=== PATIENT | male | born 1990 | race Caucasian/White ===

== ENCOUNTER 2020-03-01 17:50 | Emergency (ER) | payer OTHER, SELFPAY ==
[2020-03-01 17:51] VITALS: BP 122/65; PULSE 108; RESP 16; TEMP 36.3; O2SAT 94; BMI 27.2
--- NOTE | 2020-03-01 18:54 | ED.VISSUMM ---
- ER Visit Summary Date of Service: 03/01/20 Chief Complaint: Fever History of Present Illness: The patient is a 29 M past medical or surgical history. Currently on no medications. Patient states last night just before midnight he started having a fever. He has had diarrhea. With nausea. No vomiting. No cough no shortness of breath only some mild crampy abdominal pain with diarrhea. No dysuria. Does not know anyone recently has been exposed to its been ill. He denies any severe headache or neck pain. Physical Examination: Male no acute distress vital signs are stable. Currently is afebrile temperature is 97. Heart rate 108 pulse ox 94% on room air no signs hypoxia. H EENT exam unremarkable. Moist with membranes. TMs posterior pharynx are normal. No erythema or exudate. No trouble swallowing or breathing. No drooling. Neck nontender. No meningismus. Can easily flex his chin to his chest. No lymphadenopathy. Lungs clear to auscultation bilaterally. Heart regular rhythm no murmur. Abdomen soft nontender normal bowel sounds no peritoneal signs. Right upper and right lower quadrant unremarkable. Extremities moves all 4. Calves are nontender without edema. Skin no rashes. Back nontender. Neurologically is awake alert with no focal motor deficits. Test Results: Chest x-ray portable 1 view read myself shows no acute abnormality. Normal cardiac silhouette. Normal lung akins. No infiltrate. CBC normal. White count of 9. Hemoglobin 14. Chemistries normal normal gap normal creatinine. Liver enzymes normal. Covid test send out pending. Emergency Department Course and Treatment: Male with diarrhea, fever and viral-like syndrome. Treated with IV fluids. Screening labs chest x-ray and Covid to be obtained. He has had no travel and been on no antibiotics. I do not feel at this time since been less than 24 hours that he needs either stool culture or C. difficile. Treatment Plan: Repeat exam the patient is doing well at 8 PM. Abdomen is benign. He and I went over all the test results. Feels better after the IV fluids. Fluids and rest. Alternate Tylenol and Motrin for fever. Antidiarrhea medications [id number]. Outpatient Covid test pending. Disposition: dc Impression: Acute fever Acute diarrhea Acute viral syndrome rule out Covid. This note was generated with [employer] software. It may contain incorrect words, spelling, and punctuation that were not noted in review of the chart prior to signing ED Disposition - Plan for ED Patient: Referrals: True Hassan MD [Primary Care Provider] -
[2020-03-01] MEDS: 0.9% Normal Saline 1,000 ML 1000 ML IV (19:22)
--- NOTE | 2020-03-01 19:24 | RAD_ITS ---
STUDY: X-RAY CHEST REASON FOR EXAM: Male, 29 years old. WEAKNESS, 105 TEMP, HEADACHE, DECREASED SLEEP, STARTED LAST NIGHT. TECHNIQUE: Single AP portable view of the chest. COMPARISON: AUGUST 27, 2012 FINDINGS: The lungs are clear and expanded. There is no demonstrated pleural abnormality. Normal size heart. Normal mediastinum and anika. Normal visualized pulmonary arteries. Normal visualized aortic arch and descending thoracic aorta. Normal visualized thoracic spine. Normal visualized ribs, clavicles, and shoulders. There is no demonstrated abnormality of the visualized soft tissue structures of the upper abdomen. RAD/Chest 1 View (Portable) IMPRESSION: Normal x-ray examination of the chest. Electronically Signed: Mark Simmons MD at 20:03 EST , Service support ,
[2020-03-01 19:28] LABS: Absolute Lymphocyte Count 0.45 X10^3/uL (0.83-4.51); Absolute Neutrophil Count 8.8 X10^3/uL (2.0-7.7); Basophil# 0.02 X10^3/uL; Basophil% 0.2 % (0-1); Hematocrit 42.7 % (40-54); Hemoglobin 14.1 g/dL (13.0-16.5); Lymphocyte # 0.45 X10^3/ul (4.0); Lymphocyte % 4.6 % (19-41); Mean Corpuscular Hgb 29.4 pg (27.0-32.0); Mean Platelet Vol. 9.8 fl (6.2-12.0); Monocyte# 0.49 X10^3/uL; NRBC Flagged by Analyzer 0 % (0-5); Neutrophil # 8.83 X10^3/uL (2.7-7.7); Neutrophil % 89.8 % (47-70); POSITIVE DIFFERENTIAL YES; Platelet Count 197 K/mm3 (150-450); RBC Distribution Width CV 12.7 % (11.6-14.6); RBC Distribution Width SD 41.8 fl (35.1-43.9); White Blood Count 9.8 K/mm3 (4.4-11.0)
[2020-03-01 19:44] LABS: Differential Comment SCANNED; Differential Indicated SCAN CRITERIA MET
[2020-03-01 19:49] VITALS: BP 138/59; PULSE 86; RESP 18; TEMP 37.7; O2SAT 100
[2020-03-01 19:50] LABS: AST(SGOT) 17 U/L (15-37); Alanine Aminotransfer ALT/SGPT 31 U/L (16-61); Albumin, Serum 3.9 g/dL (3.2-5.0); Alkaline Phosphatase 66 U/L (45-117); Anion Gap 6 (5-15); BUN 11 mg/dL (7-18); BUN/Creat Ratio 9.9 RATIO (10-20); Bilirubin, Direct 0.12 mg/dL (0.00-0.30); Calcium,Total 9.1 mg/dL (8.5-10.1); Chloride 103 mmol/L (98-107); Creatinine, Serum 1.11 mg/dL (0.70-1.30); EST Glomerular Filtration Rate 84 mL/min (>60); Est Glom Filt Rate - Afr Amer 102 mL/min (>60); Estimated Creatinine Clearance 125.98 ml/min; Globulin 3.4 g/dL (2.2-4.2); Glucose 117 mg/dL (74-106); Potassium 3.9 mmol/L (3.5-5.1); Protein, Total 7.3 g/dL (6.4-8.2); Sodium Level 135 mmol/L (136-145)
--- NOTE | 2020-03-01 20:07 | DCINST.ED_ITS ---
ED Disposition - Plan for ED Patient: Disposition: Home or Assisted Living Instructions: ED Viral Syndrome Referrals: True Hassan MD [Primary Care Provider] - 1 Week if not improving Additional Instructions: Plenty of fluids and rest. Alternate Tylenol and Motrin for any fever. Your Covid test will be done in [place]. The state will notify you if the results are positive. Follow-up with your doctor if not improving. Return if feeling worse. Quarantine at home for the next several days.
[2020-03-01 20:22] VITALS: BP 139/61; PULSE 98; RESP 18; O2SAT 98
== END 2020-03-01 20:23 | disposition home or self-care (01) ==
PROVIDERS: Emergency Provider Emergency Medicine
DX: R50.9 Fever, unspecified (principal); R19.7 Diarrhea, unspecified; B34.9 Viral infection, unspecified
CPT/HCPCS: 71045; 80048; 80076; 85025; 87635; 99283; J7030; U0003

== ENCOUNTER 2021-10-31 17:20 | Emergency (ER) | payer OTHER, SELFPAY ==
[2021-10-31 17:22] VITALS: BP 133/87; PULSE 70; RESP 16; TEMP 36.9; O2SAT 96; BMI 28.4
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
[2021-10-31] MEDS: Acetaminophen 500 MG Tablet 1000 MG PO (18:11)
== END 2021-10-31 18:51 | disposition home or self-care (01) ==
PROVIDERS: Emergency Provider Emergency Medicine; PCP Nurse Practitioner Primary Care; Visit Provider Emergency Medicine
DX: S09.90XA Unspecified injury of head, initial encounter (principal); S00.91XA Abrasion of unspecified part of head, initial encounter; V19.3XXA Pedal cyclist (driver) (passenger) injured in unspecified nontraffic accident, initial encounter
CPT/HCPCS: 70450; 73130; 99283

== ENCOUNTER → 2022-02-17 | Outpatient (CLI) | payer OTHER, SELFPAY ==
--- NOTE | 2022-02-17 07:23 | MRI_ITS ---
STUDY: MRI RIGHT MIDFOOT REASON FOR EXAM: Male, 31 years old. RT HIND FOOT, PLANTAR FASCITITIS, FIBROMA,NERVE LESION,ENTRAPMENT TECHNIQUE: Standardized fat and water weighted pulse sequences were obtained in all 3 orthogonal planes. COMPARISON: None. FINDINGS: Normal talonavicular articulation. Normal calcaneocuboid articulation. Normal navicular-cuneiform articulations. Normal intercuneiform articulations. Normal first tarsometatarsal articulation. Normal Lisfranc ligament. Normal second and third tarsometatarsal articulations. Normal cuboid fourth and cuboid fifth tarsometatarsal articulation. Normal first through fifth metatarsi. Normal tibialis anterior tendon. Normal extensor hallucis longus tendon. Normal extensor digitorum longus tendons. Normal peroneus longus tendon and distal insertion. Normal peroneus brevis tendon and distal insertion. Normal intrinsic muscles of the mid and forefoot region. Normal extensor digitorum brevis muscle. Normal subcutis adipose space. MRI/Lower Ext/No Jt/w/o IMPRESSION: Normal MRI of the midfoot. Electronically Signed: Nguyễn Ford MD at 22:53 EDT ,
== END | disposition home or self-care (01) ==
PROVIDERS: PCP Nurse Practitioner Primary Care; Visit Provider Student in an Organized Health Care Education/Training Program
DX: M79.671 Pain in right foot (principal)
CPT/HCPCS: 73718